=== PATIENT | male | born 1955 | race Caucasian/White ===

== ENCOUNTER 2018-06-22 07:33 | Day surgery (SDC) | payer BC ==
[~2018-06-22] VITALS: Ht 162.6 cm; Wt 78.1 kg
[~2018-06-22 07:33] MED LIST: ASPI325EC PO; ASPI81EC PO; ATOR10 PO; ATOR40TA PO; Aspirin EC81 MG; BUPR150ER PO; BUPR150T2 PO; CARV3.125 PO; CLOP75 PO; HYDCHL12.5 PO; LISI5 PO; METO25ER PO; METO50ER PO; NITR.4SL SL
== END 2018-06-22 09:55 | disposition home or self-care (01) ==
LOC: ORSCSDS 07:33
PROVIDERS: Surgery
PROC: 0DBP8ZX Excision of Rectum, Via Natural or Artificial Opening Endoscopic, Diagnostic (ICD-10-PCS; principal; 2018-06-22 09:00)
DX: Z12.11 Encounter for screening for malignant neoplasm of colon (principal); K62.1 Rectal polyp; K64.8 Other hemorrhoids; K57.30 Diverticulosis of large intestine without perforation or abscess without bleeding; F17.210 Nicotine dependence, cigarettes, uncomplicated; E78.5 Hyperlipidemia, unspecified; J44.9 Chronic obstructive pulmonary disease, unspecified; I25.2 Old myocardial infarction; Z79.82 Long term (current) use of aspirin; Z79.899 Other long term (current) drug therapy
CPT/HCPCS: 88305; J7120